=== PATIENT | female | born 1970 | race Caucasian/White ===

== ENCOUNTER → 2024-02-12 07:55 | Outpatient (REF) | payer OTHER, SELFPAY | LOC: HWEVLT 07:55 | PROVIDERS: ATTENDING PHYSICIAN Radiology Diagnostic Radiology | DX: I83.893 Varicose veins of bilateral lower extremities with other complications (principal) | CPT/HCPCS: 93970 ==

== ENCOUNTER 2024-05-11 15:52 | Emergency (ER) | payer OTHER, SELFPAY ==
[2024-05-11 15:53] VITALS: BP 133/78
--- NOTE | 2024-05-11 16:42 | ED.GENMED ---
History of Present Illness
General
Chief Complaint: Musculo-Skeletal Complaint
Source: patient
Exam Limitations: none
Time Seen by Provider: 05/11/24 16:11
Nursing documentation reviewed up to this point in time: agreed with
Travel History
Have you had any contact with someone who has COVID-19?: No
Do you have any symptoms of coronavirus? Fever > 100 degrees, chills, cough, shortness of breath, sore throat, loss of taste or smell, muscle aches, or headache?: No
History of Present Illness
History of Present Illness:
54 yr old female presents to the ED for evaluation of left fourth toe injury. Patient reports she was walking barefoot yesterday and hit her left fourth toe on a trash can. She has pain with weightbearing. No other injuries.
Past History
Past History
ED Past Medical History: Cancer (breast cancer, cervical cancer), Other (has had shingles twice before upper left chest wall. Last time 2 years ago.), Other (History cervical cancer. Has been clear for 5 years) and Other (Had concussion 5 years ago.)
ED Past Surgical History: Gynecological (hysterectomy, breast lumpectomy) and Tonsilectomy
Social History
Tobacco: Non-smoker
Alcohol: None
Drug: None
Personal:
Living: with family
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
Family History
Family History: Other (no history cva, seizure)
Review of Systems
Review of Systems
Allergies reviewed?: Yes
Constitutional: Reports no symptoms; Denies fever
Musculoskeletal: Reports other ( pain in right posterior calf posterior thigh )
Skin: Reports no symptoms
Neurological: Reports no symptoms
Psychiatric: Reports no symptoms
Phy Exam
General Physical Exam
General Presentation: no apparent distress
General age: other
General Skin: warm
General Habitus: normal
General Mental: alert
General Hydration: appears well hydrated
Neurological Exam
Neurological Exam: alert and oriented x3
Musculoskeletal Exam
Musculoskeletal Exam: other (Left lower extremity strong pulses positive bruising/ecchymosis to proximal fourth toe region tender to palpation no lacerations/abrasions )
Skin Exam
Skin Exam: normal color and warm/dry
Psychiatric Exam
Psychiatric Exam: normal mood/affect
Course
Orders/Labs/Results
Orders:
Orders
05/11/24 16:40
CR Foot - Left Min 3 Views Urgent
Comment:
Reason For Exam: trauma to 4th toe/distal 4th MT
05/11/24 16:49
05/11/24 16:49
Vital Signs
Initial and Last Documented VS:
Initial Vital Signs
Temp Pulse Resp BP Pulse Ox
97.9 F 64 20 133/78 96
05/11/24 15:53 05/11/24 15:53 05/11/24 15:53 05/11/24 15:53 05/11/24 15:53
Last Documented Vital Signs
Temp Pulse Resp BP Pulse Ox
97.9 F 64 20 133/78 96
05/11/24 15:53 05/11/24 15:53 05/11/24 15:53 05/11/24 15:53 05/11/24 15:53
MDM/Problems Addressed
Differential Diagnosis Includes:
Not limited to contusion versus sprain versus fracture
MDM/Problems Addressed:
Symptoms are consistent with toe sprain. Will give cast shoe for support discussed ice and elevation NSAIDs.
*Critical Care Note
Total Time (30-74mins, 75-104mins- exclusive of procedures): Not Applicable
ED Attending Note
-
Portions of this chart may have been created with voice recognition software.� Occasional wrong word or��sound alike� substitutions may have occurred due to the inherent limitations of voice recognition software.
Discharge Plan
Departure
Patient Disposition: Home (Routine Discharge)
Date of Disposition: 05/11/24
Time of Disposition: 17:55
Patient with high blood pressure during this ER visit?: Yes
Condition: Fair
Covid-19: Not Applicable
Discharge Problem:
Sprain of toe
Instructions: Sprain (DC)
Prescriptions:
No Action
multivitamin [One Daily] 1 EACH tablet
1 ea PO DAILY
topiramate 25 MG tablet
25 mg PO DAILY
levothyroxine 25 MCG tablet
25 mcg PO DAILY AT 0700
epinephrine 1 MG/10 ML syringe
IM PRN PRN (Reason: allergic reation)
Methylcobalamin
1 mg PO DAILY
Relizen
2 tab PO HS
Patient Comments:
for hot flashes
Referrals:
Tegan Marvin, DO [Family Provider] -
Activity Restrictions/Additional Instructions:
You may wear cast shoe for support keep elevated as much as possible. You may take ibuprofen 600 mg every hours with food and continue to ice for the next 24 hours. Follow-up with family doctor as needed return if any worsening of symptoms.
Interventions
Interventions:
*Risk Screen - Suicide Last Done: 05/11/24 15:53
*General Assessment Last Done: 05/11/24 15:53
*Neglect/Abuse Screening Last Done: 05/11/24 15:53
ED-Musculoskeletal Assessment Last Done: 05/11/24 17:00
Discharge Date and Time
Print Language: FAROESE
== END 2024-05-11 18:14 | disposition home or self-care (01) ==
LOC: EMR 15:52
PROVIDERS: EMERGENCY PHYSICIAN Emergency Medicine; FAMILY PHYSICIAN Family Medicine
DX: S93.504A Unspecified sprain of right lesser toe(s), initial encounter (principal); S90.122A Contusion of left lesser toe(s) without damage to nail, initial encounter; M79.661 Pain in right lower leg; W22.8XXA Striking against or struck by other objects, initial encounter; Y93.01 Activity, walking, marching and hiking; Z85.41 Personal history of malignant neoplasm of cervix uteri; Z85.3 Personal history of malignant neoplasm of breast; B02.9 Zoster without complications; Z87.820 Personal history of traumatic brain injury; R03.0 Elevated blood-pressure reading, without diagnosis of hypertension
CPT/HCPCS: 99283; 73630

== ENCOUNTER → 2024-10-07 10:20 | Outpatient (REF) | payer OTHER, SELFPAY | LOC: WDC 10:20 | PROVIDERS: ATTENDING PHYSICIAN Nurse Practitioner Family | DX: N63.31 Unspecified lump in axillary tail of the right breast (principal); R59.0 Localized enlarged lymph nodes | CPT/HCPCS: 76642; 77062; 77066 ==

== ENCOUNTER → 2024-11-25 08:18 | Outpatient (REF) | payer OTHER, SELFPAY | LOC: RAD 08:18 | PROVIDERS: ATTENDING PHYSICIAN Family Medicine | DX: R91.1 Solitary pulmonary nodule (principal) | CPT/HCPCS: 71046 ==

== ENCOUNTER → 2024-12-10 07:29 | Outpatient (REF) | payer OTHER, SELFPAY | LOC: HWRAD 07:29 | PROVIDERS: ATTENDING PHYSICIAN Family Medicine | DX: R91.8 Other nonspecific abnormal finding of lung field (principal) | CPT/HCPCS: 71250 ==

== ENCOUNTER → 2025-03-17 16:37 | Outpatient (REF) | payer OTHER, SELFPAY | LOC: MRI 3T 16:37 | PROVIDERS: ATTENDING PHYSICIAN Surgery; FAMILY PHYSICIAN Family Medicine | DX: R59.0 Localized enlarged lymph nodes (principal); Z85.3 Personal history of malignant neoplasm of breast | CPT/HCPCS: 77049; A9585 ==